=== PATIENT | male | born 1975 | race Caucasian/White ===

== ENCOUNTER 2022-11-07 00:28 | Inpatient (IN) | payer BC, OTHER ==
[2022-11-07 01:19] LABS: Analyzer IN Cardio ER; Calcium, Ionized (venous) 1.15 mmol/L (1.16-1.32); Chloride (VBG) 104 mmol/L (98-106); Sodium 134.9 mmol/L (133-146)
[2022-11-07 01:30] LABS: #Basophils 0.1 thou/uL (0.0-0.2); #Eosinphils 0.1 thou/uL (0.0-0.7); #Lymphocytes 4.3 thou/uL (1.20-3.40); #Monocytes 1.4 thou/uL (0.11-0.59); #Neutrophils 11.6 thou/uL (1.40-6.50); %Basophils 0.6 % (0.0-1.0); %Eosinophils 0.6 % (0.0-10.0); %Lymphocytes 24.3 % (21.0-51.0); %Monocytes 8.1 % (0.0-10.0); %Neutrophils 66.4 % (42.0-75.0); Hemoglobin 17.3 g/dL (14.0-18.0); Mean Corpuscular HGB CONC 33.9 g/dL (32.0-36.0); Mean Corpuscular Hemoglobin 31.4 pg (27.0-31.0); Mean Corpuscular Volume 92.7 fl (78.0-98.0); Mean Platelet Volume 8.1 fL (7.4-10.4); Platelet Count 331 10x3/uL (130-400); RBC Distribution Width 13.2 % (11.5-14.5); Red Blood Cell (RBC) Count 5.53 mill/uL (4.70-6.10); White Blood Cell (WBC) Count 17.5 10x3/uL (4.8-10.8)
[2022-11-07 01:42] LABS: Actual Bicarbonate (HCO3v) 2 mEq/L (22-28); Base Excess -32.1 mEq/L (-2.0 to +3.0); pH (venous) 6.79 (7.32-7.43)
[2022-11-07 01:51] LABS: SARS-CoV-2 NAA Rapid Test Not Detected (NotDetected)
[2022-11-07] MEDS ORDERED: LORazepam 2 MG/ML SYR.(CARPUJECT) ONE (01:52)
[2022-11-07 01:54] LABS: ALT (SGPT) 241 U/L (8-55); AST (SGOT) 156 U/L (5-34); Albumin 5.5 g/dL (3.5-5.0); Alkaline Phosphatase 106 U/L (40-110); BUN (Urea Nitrogen) 15 mg/dL (8.9-20.6); Bilirubin, Total 0.8 mg/dL (0.2-1.2); Calc. Creatinine Clearance 0 mL/min (70-130); Calcium 8.8 mg/dL (7.8-10.44); Chloride 103 mmol/L (98-107); Estimated GFR 52; Globulin 3.6 g/dL (2.4-3.5); Glucose 303 mg/dL (70-105); Lipase 262 U/L (8-78); Magnesium 2.9 mg/dL (1.6-2.6); Potassium 4.1 mmol/L (3.5-5.1); Protein, Total 9.1 g/dL (6.0-8.3); Sodium 132 mmol/L (136-145)
[2022-11-07 01:59] LABS: Carbon Dioxide Less than 8 mmol/L (22-29)
[2022-11-07] MEDS ORDERED: INSULIN REGULAR IN 0.9 % NACL 100 UNIT/100 ML BAG ONE (02:20)
[2022-11-07] MEDS ORDERED: Insulin Regular 300 UNITS/3 ML VIAL ONE (02:20)
[2022-11-07] MEDS ORDERED: D5 1/2 NS w/20 mEq KCL 1,000 ML IV SCH (02:30)
[2022-11-07] MEDS ORDERED: SODIUM BICARBONATE IV SCH (02:45)
[2022-11-07] MEDS ORDERED: STERILE WATER IV SCH (02:45)
[2022-11-07] MEDS ORDERED: Acetaminophen 325 MG TAB PO PRN (02:46)
[2022-11-07] MEDS ORDERED: Ondansetron PF 4 MG/2 ML Vial IVP PRN (02:46)
[2022-11-07] MEDS ORDERED: Dextrose 5 %-0.45 % NaCl 1,000 ML IV PRN (02:49)
[2022-11-07] MEDS ORDERED: Electrolyte Replacement Protocol 1 EACH IVPB PRN (02:49)
[2022-11-07] MEDS ORDERED: NS 0.9% w/ 20 MEQ KCL 1,000 ML IV PRN ×2 (02:49)
[2022-11-07] MEDS ORDERED: Sodium Chloride 0.9% 1,000 ML IV PRN ×4 (02:49)
[2022-11-07] MEDS ORDERED: HUMULIN R 100 UNITS in Sodium Chloride 0.9% 100 ML IVPB SCH (03:00)
[2022-11-07] MEDS ORDERED: Labetalol HCl 100 MG/20 ML VIAL ONE (03:51)
[2022-11-07] MEDS ORDERED: Potassium Chloride 20 MEQ/100 ML PREMIX BAG ONE (03:51)
[2022-11-07] MEDS ORDERED: D5 0.9% NS w/ 20 mEq KCl 1,000 ML IV SCH (04:15)
[2022-11-07 04:23] LABS: Hemoglobin A1c 8.1 % (4.0-6.0)
[2022-11-07 04:38] LABS: Lactic Acid 5.4 mmol/L (0.5-2.2)
[2022-11-07 04:39] LABS: ALT (SGPT) 233 U/L (8-55); AST (SGOT) 148 U/L (5-34); Albumin 5.2 g/dL (3.5-5.0); Alkaline Phosphatase 97 U/L (40-110); BUN (Urea Nitrogen) 15 mg/dL (8.9-20.6); Bilirubin, Total 0.9 mg/dL (0.2-1.2); Calc. Creatinine Clearance 0 mL/min (70-130); Calcium 8.1 mg/dL (7.8-10.44); Cardiac Risk 5.2 (Less than 4.5); Chloride 104 mmol/L (98-107); Cholesterol 223 mg/dl (< 200 Desired); Estimated GFR 60; Globulin 3.4 g/dL (2.4-3.5); Glucose 295 mg/dL (70-105); HDL Cholesterol 43 mg/dL (>60 Neg Risk); Potassium 4.1 mmol/L (3.5-5.1); Protein, Total 8.6 g/dL (6.0-8.3); Sodium 132 mmol/L (136-145); Triglycerides 602 mg/dL (Less than 150)
[2022-11-07 04:56] LABS: Carbon Dioxide Less than 8 mmol/L (22-29)
[2022-11-07 06:04] LABS: Bacteria/HPF None Seen HPF (None Seen); Bilirubin Negative (Negative); Blood, Urine Negative (Negative); Clarity Clear (Clear); Glucose, Urine (Dipstick) Greater than 1000 mg/dL (Negative); Ketone, Urine Greater than 150 mg/dL (Negative); Leukocyte Negative Leu/uL (Negative); Nitrite Negative (Negative); Protein, Urine (Dipstick) 70 mg/dL (Neg-Trace); RBC/HPF None Seen HPF (0-3); Specific Gravity, Urine 1.025 (1.002-1.036); Squamous Epithelial 0-3 HPF (0-3); Urobilinogen Normal mg/dL (Less than 2); WBC/HPF 0-3 HPF (0-3); pH, Urine 5.5 (5.0-9.0)
[2022-11-07 06:12] LABS: Band 21 % (5-11); Eosinophils 1 % (0-10); Hemoglobin 16.4 g/dL (14.0-18.0); Lymphocytes 15 % (21-51); MDiff Complete? YES; Mean Corpuscular HGB CONC 34.4 g/dL (32.0-36.0); Mean Corpuscular Hemoglobin 31.6 pg (27.0-31.0); Mean Platelet Volume 8.1 fL (7.4-10.4); Monocytes 7 % (0-10); Neutrophil 56 % (42-75); Platelet Count 335 10x3/uL (130-400); RBC Distribution Width 12.9 % (11.5-14.5); Red Blood Cell (RBC) Count 5.19 mill/uL (4.70-6.10); White Blood Cell (WBC) Count 26.9 10x3/uL (4.8-10.8)
[2022-11-07 06:23] LABS: Calcium, Ionized (venous) 1.17 mmol/L (1.16-1.32); Chloride (VBG) 104 mmol/L (98-106); Hemoglobin (Hb) 15.7 g/dL (13.1-17.2); Sodium 134.7 mmol/L (133-146)
[2022-11-07 06:26] LABS: Actual Bicarbonate (HCO3v) 4 mEq/L (22-28); Base Excess -31.1 mEq/L (-2.0 to +3.0); pH (venous) 6.79 (7.32-7.43)
[2022-11-07 06:51] LABS: BUN (Urea Nitrogen) 15 mg/dL (8.9-20.6); Calc. Creatinine Clearance 0 mL/min (70-130); Calcium 7.4 mg/dL (7.8-10.44); Chloride 106 mmol/L (98-107); Estimated GFR 60; Glucose 256 mg/dL (70-105); Potassium 4.4 mmol/L (3.5-5.1); Sodium 133 mmol/L (136-145)
[2022-11-07 06:56] LABS: Carbon Dioxide Less than 8 mmol/L (22-29)
[2022-11-07 08:27] LABS: Lactic Acid 2.8 mmol/L (0.5-2.2)
[2022-11-07] MEDS: Famotidine 20 MG TAB PO SCH ×2 (09:22→20:29)
[2022-11-07] MEDS: Heparin 5,000 UNITS/ML VIAL SC SCH ×2 (09:22→20:29)
[2022-11-07] MEDS: D5 1/2 NS w/20 mEq KCL 1,000 ML IV PRN ×4 (09:27→23:09)
[2022-11-07 09:47] LABS: Troponin I Less than 0.010 ng/mL (< 0.028)
[2022-11-07] MEDS ORDERED: Lactated Ringer's 1,000 ML IV SCH (10:30)
[2022-11-07 10:41] LABS: BUN (Urea Nitrogen) 15 mg/dL (8.9-20.6); Calc. Creatinine Clearance 0 mL/min (70-130); Calcium 7.2 mg/dL (7.8-10.44); Chloride 112 mmol/L (98-107); Estimated GFR 57; Glucose 278 mg/dL (70-105); Potassium 4.7 mmol/L (3.5-5.1); Sodium 134 mmol/L (136-145)
[2022-11-07 10:48] LABS: Carbon Dioxide Less than 8 mmol/L (22-29)
[2022-11-07 15:45] LABS: Anion Gap 20 mmol/L (10-20); BUN (Urea Nitrogen) 13 mg/dL (8.9-20.6); Calc. Creatinine Clearance 82 mL/min (70-130); Calcium 7.9 mg/dL (7.8-10.44); Chloride 110 mmol/L (98-107); Estimated GFR 63; Glucose 154 mg/dL (70-105); Magnesium 2.1 mg/dL (1.6-2.6); Potassium 4.4 mmol/L (3.5-5.1); Sodium 134 mmol/L (136-145)
[2022-11-07 15:50] LABS: Carbon Dioxide 8 mmol/L (22-29)
[2022-11-07 18:44] LABS: Phosphorus 1.4 mg/dL (2.3-4.7)
[2022-11-07 18:56] LABS: Anion Gap 18 mmol/L (10-20); BUN (Urea Nitrogen) 12 mg/dL (8.9-20.6); Calc. Creatinine Clearance 83 mL/min (70-130); Calcium 7.8 mg/dL (7.8-10.44); Chloride 110 mmol/L (98-107); Estimated GFR 64; Glucose 193 mg/dL (70-105); Potassium 4.1 mmol/L (3.5-5.1); Sodium 133 mmol/L (136-145)
[2022-11-07 18:59] LABS: Carbon Dioxide 9 mmol/L (22-29)
[2022-11-07] MEDS ORDERED: Magnesium 2 GM/50 ML(in water) 2 GM in Premix Bag 1 BAG IVPB SCH (19:15)
[2022-11-07] MEDS: Potassium Phosphate 15 MMOL in Sodium Chloride 0.9% 250 ML 250 ML IVPB PRN (19:43)
[2022-11-07 22:50] LABS: Anion Gap 18 mmol/L (10-20); BUN (Urea Nitrogen) 11 mg/dL (8.9-20.6); Calc. Creatinine Clearance 93 mL/min (70-130); Calcium 7.8 mg/dL (7.8-10.44); Chloride 110 mmol/L (98-107); Estimated GFR 73; Glucose 174 mg/dL (70-105); Potassium 3.7 mmol/L (3.5-5.1); Sodium 133 mmol/L (136-145)
[2022-11-07 22:51] LABS: Magnesium 2.7 mg/dL (1.6-2.6)
[2022-11-07 22:53] LABS: Carbon Dioxide 9 mmol/L (22-29)
[2022-11-08] MEDS: D5 1/2 NS w/20 mEq KCL 1,000 ML IV PRN ×2 (03:14→08:07)
[2022-11-08 04:39] LABS: #Lymphocytes 0.5 thou/uL (1.20-3.40); #Monocytes 0.6 thou/uL (0.11-0.59); #Neutrophils 3.6 thou/uL (1.40-6.50); %Lymphocytes 10.8 % (21.0-51.0); %Monocytes 12.9 % (0.0-10.0); %Neutrophils 75.3 % (42.0-75.0); Hemoglobin 12.8 g/dL (14.0-18.0); Mean Corpuscular HGB CONC 35.2 g/dL (32.0-36.0); Mean Corpuscular Hemoglobin 32.2 pg (27.0-31.0); Mean Corpuscular Volume 91.6 fl (78.0-98.0); Mean Platelet Volume 7.3 fL (7.4-10.4); Platelet Count 134 10x3/uL (130-400); Red Blood Cell (RBC) Count 3.97 mill/uL (4.70-6.10); White Blood Cell (WBC) Count 4.8 10x3/uL (4.8-10.8)
[2022-11-08 05:10] LABS: Phosphorus 1.5 mg/dL (2.3-4.7)
[2022-11-08 05:23] LABS: ALT (SGPT) 115 U/L (8-55); AST (SGOT) 51 U/L (5-34); Albumin 3.7 g/dL (3.5-5.0); Alkaline Phosphatase 56 U/L (40-110); Anion Gap 15 mmol/L (10-20); BUN (Urea Nitrogen) 9 mg/dL (8.9-20.6); Bilirubin, Total 0.8 mg/dL (0.2-1.2); Calc. Creatinine Clearance 105 mL/min (70-130); Calcium 7.7 mg/dL (7.8-10.44); Carbon Dioxide 11 mmol/L (22-29); Chloride 112 mmol/L (98-107); Estimated GFR 85; Globulin 2.2 g/dL (2.4-3.5); Glucose 159 mg/dL (70-105); Lipase 216 U/L (8-78); Magnesium 2.3 mg/dL (1.6-2.6); Potassium 3.5 mmol/L (3.5-5.1); Protein, Total 5.9 g/dL (6.0-8.3); Sodium 134 mmol/L (136-145)
[2022-11-08] MEDS: Potassium Phosphate 15 MMOL in Sodium Chloride 0.9% 250 ML 250 ML IVPB PRN (05:53)
[2022-11-08] MEDS ORDERED: Potassium Chloride 20 MEQ in Premix Bag 1 BAG IVPB SCH (08:00)
[2022-11-08] MEDS: Heparin 5,000 UNITS/ML VIAL SC SCH ×2 (08:07→19:59)
[2022-11-08] MEDS: Famotidine 20 MG TAB PO SCH ×2 (08:07→19:59)
[2022-11-08] MEDS ORDERED: Dextrose 5% in Water 1,000 ML IV PRN (08:43)
[2022-11-08] MEDS ORDERED: Dextrose 50% Abboject 50 ML SYRINGE SLOW IVP PRN (08:43)
[2022-11-08] MEDS ORDERED: HumaLOG 300 UNITS/3 ML VIAL SC PRN (08:43)
[2022-11-08] MEDS: Empagliflozin 25 MG TAB PO SCH (10:13)
[2022-11-08] MEDS: Aspirin Chewable 81 MG TAB PO SCH (10:13)
[2022-11-08] MEDS: Doxycycline 100 MG CAP PO SCH ×2 (10:13→19:58)
[2022-11-08] MEDS: NS 0.9% w/ 20 MEQ KCL 1,000 ML/1,000 ML BAG IV SCH ×2 (10:19→19:59)
[2022-11-08 11:53] LABS: Base Excess -13.9 mEq/L (-2.0 to +3.0); Calcium, Ionized (venous) 1.18 mmol/L (1.16-1.32); Chloride (VBG) 109 mmol/L (98-106); Hemoglobin (Hb) 14.1 g/dL (13.1-17.2); Potassium (VBG) 3.84 mmol/L (3.70-5.30); pH (venous) 7.27 (7.32-7.43)
[2022-11-08 11:57] LABS: Actual Bicarbonate (HCO3v) 11 mEq/L (22-28)
[2022-11-08 15:32] VITALS: BMI 32.0
[2022-11-08] MEDS: metFORMIN 500 MG TAB PO SCH (16:09)
[2022-11-08 19:25] LABS: Potassium 3.7 mmol/L (3.5-5.1)
[2022-11-08] MEDS ORDERED: Rosuvastatin 20 MG TAB PO SCH (21:00)
[2022-11-09 05:22] LABS: #Eosinphils 0.2 thou/uL (0.0-0.7); #Lymphocytes 1.1 thou/uL (1.20-3.40); #Monocytes 0.5 thou/uL (0.11-0.59); #Neutrophils 2.7 thou/uL (1.40-6.50); %Basophils 0.5 % (0.0-1.0); %Eosinophils 4.2 % (0.0-10.0); %Lymphocytes 24.8 % (21.0-51.0); %Monocytes 10.8 % (0.0-10.0); %Neutrophils 59.7 % (42.0-75.0); Hemoglobin 12.4 g/dL (14.0-18.0); Mean Corpuscular HGB CONC 35.1 g/dL (32.0-36.0); Mean Corpuscular Hemoglobin 32.5 pg (27.0-31.0); Mean Corpuscular Volume 92.4 fl (78.0-98.0); Mean Platelet Volume 7.7 fL (7.4-10.4); Platelet Count 117 10x3/uL (130-400); RBC Distribution Width 12.7 % (11.5-14.5); Red Blood Cell (RBC) Count 3.83 mill/uL (4.70-6.10); White Blood Cell (WBC) Count 4.5 10x3/uL (4.8-10.8)
[2022-11-09 05:42] LABS: ALT (SGPT) 107 U/L (8-55); AST (SGOT) 53 U/L (5-34); Albumin 3.7 g/dL (3.5-5.0); Alkaline Phosphatase 55 U/L (40-110); Anion Gap 20 mmol/L (10-20); BUN (Urea Nitrogen) 9 mg/dL (8.9-20.6); Bilirubin, Total 1.1 mg/dL (0.2-1.2); Calc. Creatinine Clearance 129 mL/min (70-130); Calcium 8.6 mg/dL (7.8-10.44); Carbon Dioxide 10 mmol/L (22-29); Chloride 112 mmol/L (98-107); Estimated GFR 98; Globulin 2.6 g/dL (2.4-3.5); Glucose 138 mg/dL (70-105); Magnesium 1.9 mg/dL (1.6-2.6); Potassium 3.7 mmol/L (3.5-5.1); Protein, Total 6.3 g/dL (6.0-8.3); Sodium 138 mmol/L (136-145)
[2022-11-09] MEDS ORDERED: Magnesium 2 GM/50 ML(in water) 2 GM in Premix Bag 1 BAG IVPB SCH (06:00)
[2022-11-09] MEDS: NS 0.9% w/ 20 MEQ KCL 1,000 ML/1,000 ML BAG IV SCH ×2 (06:27→16:58)
[2022-11-09] MEDS: Aspirin Chewable 81 MG TAB PO SCH (08:08)
[2022-11-09] MEDS: Heparin 5,000 UNITS/ML VIAL SC SCH (08:08)
[2022-11-09] MEDS: Famotidine 20 MG TAB PO SCH (08:08)
[2022-11-09] MEDS: Doxycycline 100 MG CAP PO SCH (08:08)
[2022-11-09] MEDS: metFORMIN 500 MG TAB PO SCH ×2 (08:08→16:58)
[2022-11-09] MEDS: Empagliflozin 25 MG TAB PO SCH (09:27)
[2022-11-09 17:01] VITALS: TEMP 97.3
== END 2022-11-09 17:58 | disposition home or self-care (01) | DRG 637 ==
LOC: ERS 00:28 → ERHOLD 02:46 → IMCU/EMU 06:35
PROVIDERS: ADMIT Family Medicine; ATTEND Family Medicine
DX: E11.10 Type 2 diabetes mellitus with ketoacidosis without coma (principal); K85.90 Acute pancreatitis without necrosis or infection, unspecified; N17.9 Acute kidney failure, unspecified; R65.10 Systemic inflammatory response syndrome (SIRS) of non-infectious origin without acute organ dysfunction; Z20.822 Contact with and (suspected) exposure to COVID-19; I10 Essential (primary) hypertension; R07.89 Other chest pain; D72.829 Elevated white blood cell count, unspecified; F41.9 Anxiety disorder, unspecified; R74.8 Abnormal levels of other serum enzymes; E83.39 Other disorders of phosphorus metabolism; E78.5 Hyperlipidemia, unspecified; Z88.8 Allergy status to other drugs, medicaments and biological substances; Z82.49 Family history of ischemic heart disease and other diseases of the circulatory system; Z79.899 Other long term (current) drug therapy; Z79.82 Long term (current) use of aspirin
CPT/HCPCS: 36415; 36416; 71045; 80053; 80061; 81003; 81015; 82010; 82805; 83036; 83605; 83690; 83735; 83880; 84100; 84484; 85025; 87040; 87086; 93005; A4217; J1644; J1815; J2060; J3475; J3480; J3490; J7050; J7120; U0002

== ENCOUNTER 2022-11-10 07:24 | Inpatient (IN) | payer OTHER ==
[2022-11-10] MEDS ORDERED: Sodium Bicarb 50 MEQ/50 ML VIAL ONE ×5 (07:59→10:52)
[2022-11-10 08:00] LABS: Analyzer IN Cardio ER; Base Excess (BEa) -28.5 mEq/L (-2.0 to +3.0); Calcium, Ionized (arterial) 1.33 mmol/L (1.12-1.30); Carboxyhemoglobin (COHb) 0.4 gm% (0.0-3.0); Hemoglobin (Hb) 15.1 g/dL (14.0-18.0); Potassium - ABG Lab 4.04 mmol/L (3.70-5.30)
[2022-11-10 08:02] LABS: CO2 Tension 9.6 mmHg (35.0-45.0); Puncture Site LRA; pH, Arterial 6.95 (7.35-7.45)
[2022-11-10 08:08] LABS: #Basophils 0.1 thou/uL (0.0-0.2); #Eosinphils 0.1 thou/uL (0.0-0.7); #Lymphocytes 2.2 thou/uL (1.20-3.40); #Monocytes 0.7 thou/uL (0.11-0.59); #Neutrophils 9.8 thou/uL (1.40-6.50); %Basophils 0.5 % (0.0-1.0); %Eosinophils 0.6 % (0.0-10.0); %Lymphocytes 16.9 % (21.0-51.0); %Monocytes 5.5 % (0.0-10.0); %Neutrophils 76.4 % (42.0-75.0); Hemoglobin 14.8 g/dL (14.0-18.0); Mean Corpuscular HGB CONC 33.6 g/dL (32.0-36.0); Mean Corpuscular Hemoglobin 31.1 pg (27.0-31.0); Mean Corpuscular Volume 92.7 fl (78.0-98.0); Mean Platelet Volume 7.6 fL (7.4-10.4); Platelet Count 226 10x3/uL (130-400); RBC Distribution Width 12.9 % (11.5-14.5); Red Blood Cell (RBC) Count 4.77 mill/uL (4.70-6.10); White Blood Cell (WBC) Count 12.9 10x3/uL (4.8-10.8)
[2022-11-10] MEDS ORDERED: Sodium Bicarbonate 150 MEQ in Dextrose 5% in Water 1,000 ML IV SCH (08:15)
[2022-11-10 08:30] LABS: ALT (SGPT) 162 U/L (8-55); AST (SGOT) 159 U/L (5-34); Albumin 4.3 g/dL (3.5-5.0); Alkaline Phosphatase 96 U/L (40-110); BUN (Urea Nitrogen) 17 mg/dL (8.9-20.6); Bilirubin, Total 1.3 mg/dL (0.2-1.2); Calc. Creatinine Clearance 0 mL/min (70-130); Calcium 8.9 mg/dL (7.8-10.44); Chloride 109 mmol/L (98-107); Estimated GFR 66; Glucose 187 mg/dL (70-105); Potassium 4.1 mmol/L (3.5-5.1); Protein, Total 7.3 g/dL (6.0-8.3); Sodium 136 mmol/L (136-145)
[2022-11-10 08:33] LABS: Carbon Dioxide Less than 8 mmol/L (22-29)
[2022-11-10] MEDS ORDERED: Electrolyte Replacement Protocol 1 EACH IVPB ONE (10:32)
[2022-11-10] MEDS ORDERED: Dextrose 5 %-0.45 % NaCl 1,000 ML IV PRN (10:32)
[2022-11-10] MEDS ORDERED: NS 0.9% w/ 20 MEQ KCL 1,000 ML IV PRN ×2 (10:32)
[2022-11-10] MEDS ORDERED: Sodium Chloride 0.9% 1,000 ML IV PRN ×4 (10:32)
[2022-11-10] MEDS ORDERED: HUMULIN R 100 UNITS in Sodium Chloride 0.9% 100 ML IVPB SCH (10:45)
[2022-11-10] MEDS ORDERED: Electrolyte Replacement Protocol FS PRN (11:00)
[2022-11-10] MEDS ORDERED: Insulin Regular 300 UNITS/3 ML VIAL IVP SCH (11:15)
[2022-11-10] MEDS ORDERED: Sodium Bicarb 50 MEQ/50 ML VIAL IVP SCH (11:15)
[2022-11-10 11:26] VITALS: BMI 28.8
[2022-11-10 12:16] LABS: BUN (Urea Nitrogen) 17 mg/dL (8.9-20.6); Calc. Creatinine Clearance 105 mL/min (70-130); Chloride 109 mmol/L (98-107); Estimated GFR 87; Glucose 204 mg/dL (70-105); Potassium 4.4 mmol/L (3.5-5.1); Sodium 140 mmol/L (136-145)
[2022-11-10 12:19] LABS: Carbon Dioxide Less than 8 mmol/L (22-29)
[2022-11-10] MEDS: D5 1/2 NS w/20 mEq KCL 1,000 ML IV PRN ×3 (14:00→21:57)
[2022-11-10 16:15] LABS: Lactic Acid 1.7 mmol/L (0.5-2.2)
[2022-11-10 16:16] LABS: BUN (Urea Nitrogen) 18 mg/dL (8.9-20.6); Calc. Creatinine Clearance 102 mL/min (70-130); Calcium 8.1 mg/dL (7.8-10.44); Chloride 111 mmol/L (98-107); Estimated GFR 84; Glucose 169 mg/dL (70-105); Potassium 3.3 mmol/L (3.5-5.1); Sodium 141 mmol/L (136-145)
[2022-11-10 16:17] LABS: RBC/HPF 0-3 HPF (0-3); Squamous Epithelial 0-3 HPF (0-3); WBC/HPF None Seen HPF (0-3)
[2022-11-10 16:17] LABS: BUN (Urea Nitrogen) 18 mg/dL (8.9-20.6); Calc. Creatinine Clearance 94 mL/min (70-130); Calcium 8.4 mg/dL (7.8-10.44); Chloride 111 mmol/L (98-107); Estimated GFR 76; Glucose 173 mg/dL (70-105); Magnesium 2.1 mg/dL (1.6-2.6); Phosphorus 2.4 mg/dL (2.3-4.7); Potassium 3.3 mmol/L (3.5-5.1); Sodium 142 mmol/L (136-145)
[2022-11-10 16:29] LABS: Bacteria/HPF Rare-Few HPF (None Seen)
[2022-11-10 16:30] LABS: Carbon Dioxide Less than 8 mmol/L (22-29)
[2022-11-10] MEDS: Potassium Chloride 20 MEQ in Premix Bag 1 BAG IVPB SCH ×3 (16:43→23:36)
[2022-11-10] MEDS ORDERED: Dextrose 50% Abboject 50 ML SYRINGE IVP PRN (19:30)
[2022-11-10] MEDS ORDERED: Dextrose 5% in Water 1,000 ML IV PRN (19:30)
[2022-11-10 22:51] LABS: Potassium 3.5 mmol/L (3.5-5.1)
[2022-11-11] MEDS: Potassium Chloride 20 MEQ in Premix Bag 1 BAG IVPB SCH (01:42)
[2022-11-11] MEDS: D5 1/2 NS w/20 mEq KCL 1,000 ML IV PRN ×2 (01:42→06:09)
[2022-11-11 05:27] LABS: #Lymphocytes 0.8 thou/uL (1.20-3.40); #Monocytes 0.4 thou/uL (0.11-0.59); #Neutrophils 3.3 thou/uL (1.40-6.50); %Basophils 0.1 % (0.0-1.0); %Eosinophils 0.7 % (0.0-10.0); %Lymphocytes 18.1 % (21.0-51.0); %Monocytes 8.8 % (0.0-10.0); %Neutrophils 72.3 % (42.0-75.0); Mean Corpuscular HGB CONC 36.1 g/dL (32.0-36.0); Mean Corpuscular Hemoglobin 32.8 pg (27.0-31.0); Mean Corpuscular Volume 90.9 fl (78.0-98.0); Mean Platelet Volume 7.3 fL (7.4-10.4); Platelet Count 128 10x3/uL (130-400); RBC Distribution Width 12.8 % (11.5-14.5); Red Blood Cell (RBC) Count 3.37 mill/uL (4.70-6.10); White Blood Cell (WBC) Count 4.6 10x3/uL (4.8-10.8)
[2022-11-11 05:46] LABS: ALT (SGPT) 151 U/L (8-55); AST (SGOT) 85 U/L (5-34); Albumin 3.3 g/dL (3.5-5.0); Alkaline Phosphatase 61 U/L (40-110); Anion Gap 18 mmol/L (10-20); BUN (Urea Nitrogen) 11 mg/dL (8.9-20.6); Bilirubin, Total 0.9 mg/dL (0.2-1.2); Calc. Creatinine Clearance 97 mL/min (70-130); Calcium 8.3 mg/dL (7.8-10.44); Carbon Dioxide 11 mmol/L (22-29); Chloride 111 mmol/L (98-107); Estimated GFR 74; Globulin 2.4 g/dL (2.4-3.5); Glucose 196 mg/dL (70-105); Lipase 752 U/L (8-78); Potassium 3.5 mmol/L (3.5-5.1); Protein, Total 5.7 g/dL (6.0-8.3); Sodium 136 mmol/L (136-145)
[2022-11-11] MEDS ORDERED: Potassium Chloride 20 MEQ TAB PO SCH ×2 (06:15→09:00)
[2022-11-11 08:24] LABS: Potassium 3.5 mmol/L (3.5-5.1)
[2022-11-11] MEDS ORDERED: Electrolyte Replacement Protocol FS PRN (09:00)
[2022-11-11] MEDS ORDERED: Dextrose 5% in Water 1,000 ML IV PRN (12:02)
[2022-11-11] MEDS ORDERED: HumaLOG 300 UNITS/3 ML VIAL SC PRN (12:02)
[2022-11-11] MEDS ORDERED: Insulin Glargine 30 UNITS/0.3 ML VIAL SC SCH (12:15)
[2022-11-11] MEDS: HumaLOG 300 UNITS/3 ML VIAL SC PRN (12:27)
[2022-11-11 13:44] LABS: Potassium 3.7 mmol/L (3.5-5.1)
[2022-11-11] MEDS: Famotidine 20 MG TAB PO SCH (20:15)
[2022-11-12 06:56] LABS: #Eosinphils 0.2 thou/uL (0.0-0.7); #Lymphocytes 1.3 thou/uL (1.20-3.40); #Monocytes 0.4 thou/uL (0.11-0.59); #Neutrophils 2.5 thou/uL (1.40-6.50); %Basophils 0.2 % (0.0-1.0); %Eosinophils 3.6 % (0.0-10.0); %Lymphocytes 29.7 % (21.0-51.0); %Monocytes 9.9 % (0.0-10.0); %Neutrophils 56.6 % (42.0-75.0); Mean Corpuscular HGB CONC 36.1 g/dL (32.0-36.0); Mean Corpuscular Hemoglobin 32.6 pg (27.0-31.0); Mean Corpuscular Volume 90.4 fl (78.0-98.0); Mean Platelet Volume 6.9 fL (7.4-10.4); Platelet Count 119 10x3/uL (130-400); RBC Distribution Width 12.6 % (11.5-14.5); Red Blood Cell (RBC) Count 3.67 mill/uL (4.70-6.10); White Blood Cell (WBC) Count 4.4 10x3/uL (4.8-10.8)
[2022-11-12 07:12] LABS: ALT (SGPT) 121 U/L (8-55); AST (SGOT) 48 U/L (5-34); Albumin 3.6 g/dL (3.5-5.0); Alkaline Phosphatase 66 U/L (40-110); Anion Gap 21 mmol/L (10-20); BUN (Urea Nitrogen) 10 mg/dL (8.9-20.6); Calc. Creatinine Clearance 112 mL/min (70-130); Calcium 8.9 mg/dL (7.8-10.44); Carbon Dioxide 12 mmol/L (22-29); Chloride 108 mmol/L (98-107); Estimated GFR 92; Globulin 2.8 g/dL (2.4-3.5); Glucose 134 mg/dL (70-105); Magnesium 1.6 mg/dL (1.6-2.6); Potassium 3.2 mmol/L (3.5-5.1); Protein, Total 6.4 g/dL (6.0-8.3); Sodium 138 mmol/L (136-145)
[2022-11-12] MEDS ORDERED: Magnesium 2 GM/50 ML(in water) 2 GM in Premix Bag 1 BAG IVPB SCH (08:00)
[2022-11-12] MEDS ORDERED: Potassium Chloride 20 MEQ TAB PO SCH (08:00)
[2022-11-12] MEDS: Aspirin Chewable 81 MG TAB PO SCH (08:19)
[2022-11-12] MEDS: Famotidine 20 MG TAB PO SCH ×2 (08:19→21:37)
[2022-11-12] MEDS ORDERED: Insulin Glargine 30 UNITS/0.3 ML VIAL SC SCH ×2 (09:00→11:00)
[2022-11-12] MEDS: Sodium Bicarb 50 MEQ/50 ML VIAL IVP SCH ×2 (11:51→15:10)
[2022-11-12 11:57] LABS: Base Excess -11.5 mEq/L (-2.0 to +3.0); Calcium, Ionized (venous) 1.23 mmol/L (1.16-1.32); Chloride (VBG) 105 mmol/L (98-106); Hemoglobin (Hb) 13.5 g/dL (13.1-17.2); Potassium (VBG) 3.39 mmol/L (3.70-5.30); Sodium 135.5 mmol/L (133-146); pH (venous) 7.32 (7.32-7.43)
[2022-11-12 11:59] LABS: Actual Bicarbonate (HCO3v) 13 mEq/L (22-28)
[2022-11-12] MEDS: D5 1/2 NS w/20 mEq KCL 1,000 ML IV PRN ×3 (12:05→21:43)
[2022-11-12] MEDS: HUMULIN R 100 UNITS in Sodium Chloride 0.9% 100 ML IVPB SCH (12:33)
[2022-11-12 12:40] LABS: Anion Gap 20 mmol/L (10-20); BUN (Urea Nitrogen) 10 mg/dL (8.9-20.6); Calc. Creatinine Clearance 116 mL/min (70-130); Calcium 9.1 mg/dL (7.8-10.44); Carbon Dioxide 12 mmol/L (22-29); Chloride 105 mmol/L (98-107); Estimated GFR 96; Glucose 158 mg/dL (70-105); Magnesium 2.1 mg/dL (1.6-2.6); Potassium 3.4 mmol/L (3.5-5.1); Sodium 134 mmol/L (136-145)
[2022-11-12 18:54] LABS: Anion Gap 16 mmol/L (10-20); BUN (Urea Nitrogen) 11 mg/dL (8.9-20.6); Calc. Creatinine Clearance 129 mL/min (70-130); Calcium 8.4 mg/dL (7.8-10.44); Carbon Dioxide 16 mmol/L (22-29); Chloride 106 mmol/L (98-107); Estimated GFR 107; Glucose 183 mg/dL (70-105); Potassium 2.9 mmol/L (3.5-5.1); Sodium 135 mmol/L (136-145)
[2022-11-12] MEDS: Potassium Chloride 20 MEQ TAB PO SCH ×2 (21:36→23:18)
[2022-11-13 00:22] LABS: Anion Gap 15 mmol/L (10-20); BUN (Urea Nitrogen) 9 mg/dL (8.9-20.6); Calc. Creatinine Clearance 152 mL/min (70-130); Calcium 8.4 mg/dL (7.8-10.44); Carbon Dioxide 18 mmol/L (22-29); Chloride 106 mmol/L (98-107); Estimated GFR 113; Glucose 148 mg/dL (70-105); Potassium 3.2 mmol/L (3.5-5.1); Sodium 136 mmol/L (136-145)
[2022-11-13] MEDS ORDERED: Potassium Chloride 20 MEQ TAB PO SCH ×3 (01:30→21:30)
[2022-11-13] MEDS: D5 1/2 NS w/20 mEq KCL 1,000 ML IV PRN ×2 (01:58→06:23)
[2022-11-13 07:09] LABS: ALT (SGPT) 82 U/L (8-55); AST (SGOT) 39 U/L (5-34); Albumin 3.5 g/dL (3.5-5.0); Alkaline Phosphatase 58 U/L (40-110); Anion Gap 12 mmol/L (10-20); BUN (Urea Nitrogen) 6 mg/dL (8.9-20.6); Bilirubin, Total 0.8 mg/dL (0.2-1.2); Calc. Creatinine Clearance 165 mL/min (70-130); Calcium 8.7 mg/dL (7.8-10.44); Carbon Dioxide 21 mmol/L (22-29); Chloride 109 mmol/L (98-107); Estimated GFR 115; Globulin 2.5 g/dL (2.4-3.5); Glucose 113 mg/dL (70-105); Potassium 3.2 mmol/L (3.5-5.1); Sodium 139 mmol/L (136-145)
[2022-11-13] MEDS: Famotidine 20 MG TAB PO SCH ×2 (09:01→21:11)
[2022-11-13] MEDS: Aspirin Chewable 81 MG TAB PO SCH (09:01)
[2022-11-13] MEDS ORDERED: Insulin Glargine 30 UNITS/0.3 ML VIAL SC SCH (10:15)
[2022-11-13] MEDS: HUMULIN R 100 UNITS in Sodium Chloride 0.9% 100 ML IVPB SCH (10:33)
[2022-11-13] MEDS: Insulin Glargine 30 UNITS/0.3 ML VIAL SC SCH ×2 (10:46→21:15)
[2022-11-13] MEDS: D5 1/2 NS w/20 mEq KCL 1,000 ML IV SCH ×2 (10:55→18:27)
[2022-11-13] MEDS ORDERED: Potassium Chloride 20 MEQ in Lactated Ringer's 1,000 ML IV SCH (11:00)
[2022-11-13 14:40] LABS: Anion Gap 14 mmol/L (10-20); BUN (Urea Nitrogen) 9 mg/dL (8.9-20.6); Calc. Creatinine Clearance 168 mL/min (70-130); Calcium 9.2 mg/dL (7.8-10.44); Carbon Dioxide 21 mmol/L (22-29); Chloride 105 mmol/L (98-107); Estimated GFR 115; Glucose 177 mg/dL (70-105); Magnesium 1.5 mg/dL (1.6-2.6); Potassium 3.7 mmol/L (3.5-5.1); Sodium 136 mmol/L (136-145)
[2022-11-13] MEDS ORDERED: Magnesium 2 GM/50 ML(in water) 2 GM in Premix Bag 1 BAG IVPB SCH (16:00)
[2022-11-13] MEDS: HumaLOG 300 UNITS/3 ML VIAL SC PRN (17:45)
[2022-11-13 20:59] LABS: Anion Gap 16 mmol/L (10-20); BUN (Urea Nitrogen) 10 mg/dL (8.9-20.6); Calc. Creatinine Clearance 168 mL/min (70-130); Calcium 8.9 mg/dL (7.8-10.44); Carbon Dioxide 20 mmol/L (22-29); Chloride 104 mmol/L (98-107); Estimated GFR 115; Glucose 173 mg/dL (70-105); Potassium 3.5 mmol/L (3.5-5.1); Sodium 136 mmol/L (136-145)
[2022-11-13 23:23] LABS: Anion Gap 16 mmol/L (10-20); BUN (Urea Nitrogen) 12 mg/dL (8.9-20.6); Calc. Creatinine Clearance 181 mL/min (70-130); Calcium 9.1 mg/dL (7.8-10.44); Carbon Dioxide 21 mmol/L (22-29); Chloride 102 mmol/L (98-107); Estimated GFR 118; Glucose 154 mg/dL (70-105); Potassium 3.3 mmol/L (3.5-5.1); Sodium 136 mmol/L (136-145)
[2022-11-14] MEDS: D5 1/2 NS w/20 mEq KCL 1,000 ML IV SCH (02:15)
[2022-11-14 04:38] LABS: Anion Gap 15 mmol/L (10-20); BUN (Urea Nitrogen) 10 mg/dL (8.9-20.6); Calc. Creatinine Clearance 173 mL/min (70-130); Calcium 8.8 mg/dL (7.8-10.44); Carbon Dioxide 23 mmol/L (22-29); Chloride 104 mmol/L (98-107); Estimated GFR 116; Glucose 121 mg/dL (70-105); Magnesium 1.7 mg/dL (1.6-2.6); Potassium 3.4 mmol/L (3.5-5.1); Sodium 139 mmol/L (136-145)
[2022-11-14] MEDS ORDERED: Magnesium 2 GM/50 ML(in water) 2 GM in Premix Bag 1 BAG IVPB SCH (06:00)
[2022-11-14] MEDS ORDERED: Potassium Chloride 20 MEQ TAB PO SCH (06:00)
[2022-11-14] MEDS: Aspirin Chewable 81 MG TAB PO SCH (08:59)
[2022-11-14] MEDS: Famotidine 20 MG TAB PO SCH ×2 (08:59→21:36)
[2022-11-14] MEDS: Insulin Glargine 30 UNITS/0.3 ML VIAL SC SCH ×2 (08:59→21:36)
[2022-11-15 07:08] LABS: Anion Gap 14 mmol/L (10-20); BUN (Urea Nitrogen) 13 mg/dL (8.9-20.6); Calc. Creatinine Clearance 177 mL/min (70-130); Calcium 9.1 mg/dL (7.8-10.44); Carbon Dioxide 27 mmol/L (22-29); Chloride 102 mmol/L (98-107); Estimated GFR 118; Glucose 97 mg/dL (70-105); Potassium 3.7 mmol/L (3.5-5.1); Sodium 139 mmol/L (136-145)
[2022-11-15] MEDS: Aspirin Chewable 81 MG TAB PO SCH (09:00)
[2022-11-15] MEDS: Insulin Glargine 30 UNITS/0.3 ML VIAL SC SCH (09:00)
[2022-11-15] MEDS: Famotidine 20 MG TAB PO SCH (09:00)
[2022-11-15 12:47] VITALS: TEMP 98
== END 2022-11-15 14:19 | disposition home or self-care (01) | DRG 639 ==
LOC: ERS 07:24 → CCU 10:56
PROVIDERS: ADMIT Internal Medicine Critical Care Medicine; ATTEND Internal Medicine
PROC: 5A09357 Assistance with Respiratory Ventilation, Less than 24 Consecutive Hours, Continuous Positive Airway Pressure (ICD-10-PCS; principal; 2022-11-10)
DX: E11.10 Type 2 diabetes mellitus with ketoacidosis without coma (principal); I10 Essential (primary) hypertension; F41.9 Anxiety disorder, unspecified; E87.6 Hypokalemia; E11.649 Type 2 diabetes mellitus with hypoglycemia without coma; Z79.82 Long term (current) use of aspirin; Z79.84 Long term (current) use of oral hypoglycemic drugs; Z79.899 Other long term (current) drug therapy
CPT/HCPCS: 36415; 36416; 36600; 71045; 80048; 80053; 81015; 82010; 82805; 83605; 83690; 83735; 83880; 84100; 84484; 85025; 86301; 87040; 87086; 94660; 96374; 96376; J1650; J1815; J3475; J3480; J3490; J7070; J7999